=== PATIENT | female | born 1965 | race Caucasian/White ===

== ENCOUNTER 2020-11-12 12:08 | Emergency (ER) | payer MEDICARE, OTHER ==
--- NOTE | 2020-11-12 13:23 | XR ---
EXAMINATION TYPE: XR knee complete RT DATE OF EXAM: 11/12/2020 COMPARISON: NONE HISTORY: Pain TECHNIQUE: Three views are submitted. FINDINGS: Diffuse osteopenia with mild narrowing of the need knee joints. Small amount of fluid in the suprapat ellar bursa. Diffuse osteopenia.. Osseous structures are intact. No acute fracture seen. IMPRESSION: 1. No acute fracture or dislocation. 2. Mild arthropathy with small amount of fluid in the suprapatellar bursa which can be associated wit h internal derangement of the knee correlate with MRI as clinically warranted.
[2020-11-12] MEDS ORDERED: KETOROLAC 15 MG/ML 1 ML VIAL IM STA (13:46)
--- NOTE | 2020-11-12 13:47 | ED ---
Lower Extremity Injury HPI - General Chief Complaint: Extremity Injury, Lower Stated Complaint: Right knee pain Time Seen by Provider: 11/12/20 13:21 Source: patient Mode of arrival: wheelchair Limitations: no limitations - History of Present Illness Initial Comments: 55-year-old female with history of chronic leg pain presenting to emergency Department with a chief complaint of right leg pain. 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 She states the pain is getting worse in the right knee where she has a Abdi cyst. States about 3 weeks ago it was drained her pain management physician which helped improve her symptoms but now it has increased in size again. She reports it is worse when the region is palpated but denies any swelling or erythema or ecchymosis to the region. Denies any limited range of motion. Reports minimal symptoms of the left leg. Denies any paresthesias or weakness to the leg. Denies injury to the leg. States she went to an urgent care and was advised to come to the emergency department for further evaluation. Patient is requesting symptom control until she is able to see her pain management physician in 5 days. - Related Data Allergies Allergy/AdvReac Type Severity Reaction Status Date / Time codeine Allergy Rash/Hives Verified 11/12/20 12:51 Iodinated Contrast Media Allergy Rash/Hives Verified 11/12/20 12:51 morphine Allergy Rash/Hives Verified 11/12/20 12:51 Review of Systems ROS Statement: Those systems with pertinent positive or pertinent negative responses have been documented in the HPI. ROS Other: All systems not noted in ROS Statement are negative. Past Medical History Additional Past Medical History / Comment(s): chronic back pain History of Any Multi-Drug Resistant Organisms: None Reported Past Surgical History: Adenoidectomy, Back Surgery, Section, Cholecystectomy, Orthopedic Surgery, Tonsillectomy Past Psychological History: No Psychological Hx Reported Smoking Status: Never smoker Past Alcohol Use History: None Reported Past Drug Use History: None Reported General Exam Limitations: no limitations General appearance: alert, in no apparent distress Head exam: Present: atraumatic, normocephalic, normal inspection Eye exam: Present: normal appearance, PERRL Pupils: Present: normal accommodation ENT exam: Present: normal exam, normal oropharynx, mucous membranes moist Neck exam: Present: normal inspection, full ROM. Absent: tenderness Respiratory exam: Present: normal lung sounds bilaterally. Absent: respiratory distress, wheezes, rales, rhonchi, stridor, chest wall tenderness, accessory muscle use Cardiovascular Exam: Present: regular rate, normal rhythm, normal heart sounds. Absent: systolic murmur, diastolic murmur Extremities exam: Present: normal inspection, full ROM, tenderness (Tenderness in the popliteal region of the right leg. Palpable Abdi cyst), normal capillary refill, other (Palpable DPPT laterally.). Absent: pedal edema, joint swelling, calf tenderness Back exam: Present: normal inspection, full ROM. Absent: tenderness Neurological exam: Present: alert, oriented X3 Psychiatric exam: Present: normal affect, normal mood Skin exam: Present: warm, dry, intact, normal color Course Vital Signs 11/12/20 12:46 Temperature 97.6 F Pulse Rate 98 Respiratory 20 Rate Blood Pressure 120/77 O2 Sat by Pulse 98 Oximetry Medical Decision Making - Medical Decision Making 55-year-old female with history of chronic pain presenting to emergency Department with a chief complaint of leg pain. Patient is essentially requesting symptomatic control. X-ray shows no significant findings. She has a palpable mass in the popliteal region likely be Abdi cyst. I will give the patient Toradol. She is otherwise neurovascularly intact in bilateral lower extremities. Patient reports she feels comfortable going home after the Toradol and will follow-up in 5 days with her pain management physician. Return parameters were thoroughly discussed with patient was understanding and agreeable. Disposition Clinical Impression: Right knee pain Disposition: HOME SELF-CARE Condition: Stable Instructions (If sedation given, give patient instructions): [facility] [place] (ED) Additional Instructions: Follow-up with employment training specialist. Return to emergency department if symptoms worsen. Is patient prescribed a controlled substance at d/c from ED?: No Referrals: Nonstaff,Physician [Primary Care Provider] - 1-2 days Pascual Cordova DO [Doctor of Osteopathic Medicine] - 1-2 days Time of Disposition: 13:46
[2020-11-12 14:07] VITALS: BP 118/78; PULSE 92; RESP 16; TEMP 97.8
== END 2020-11-12 14:06 | disposition home or self-care (01) ==
LOC: EC 12:08
DX: M71.21 Synovial cyst of popliteal space [Baker], right knee (principal); Z88.5 Allergy status to narcotic agent; Z91.041 Radiographic dye allergy status; Z90.89 Acquired absence of other organs; Z90.49 Acquired absence of other specified parts of digestive tract
CPT/HCPCS: 99283; 96372; 73562; J1885

== ENCOUNTER → 2020-12-27 | Outpatient (CLI) | payer MEDICARE, OTHER ==
[2020-12-27 16:09] LABS: Basophils % (A) 0 %; Eosinophils # (A) 0.1 k/uL (0-0.7); Eosinophils % (A) 2 %; HCT 43.7 % (34.0-46.0); HGB 14.5 gm/dL (11.4-16.0); Lymphocytes # (A) 1.5 k/uL (1.0-4.8); Lymphocytes % (A) 23 %; MCH 29.9 pg (25.0-35.0); MCHC 33.2 g/dL (31.0-37.0); MCV 90.1 fL (80.0-100.0); Monocytes # (A) 0.3 k/uL (0-1.0); Monocytes % (A) 5 %; Neutrophils # (A) 4.5 k/uL (1.3-7.7); Neutrophils % (A) 68 %; Platelet Count 264 k/uL (150-450); RBC 4.85 m/uL (3.80-5.40); RDW 13.6 % (11.5-15.5); WBC 6.5 k/uL (3.8-10.6)
[2020-12-27 16:15] LABS: Potassium 3.6 mmol/L (3.5-5.1)
== END | disposition home or self-care (01) ==
LOC: LABPAT 14:27
PROVIDERS: ATTEND Orthopaedic Surgery
DX: Z01.812 Encounter for preprocedural laboratory examination (principal); M23.91 Unspecified internal derangement of right knee
CPT/HCPCS: 80051; 85025; 93005

== ENCOUNTER 2021-01-06 12:19 | Day surgery (SDC) | payer MEDICARE, OTHER ==
[2020-12-31 15:44] VITALS: BMI 30.7
--- NOTE | 2021-01-05 14:13 | HP ---
HISTORY AND PHYSICAL REASON FOR ADMISSION: Surgery 01/06/2021 HISTORY OF PRESENT ILLNESS: Erica Hood is a 55-year-old patient seen with progressive right knee pain. We discussed options for treatment. She elected to proceed with right knee arthroscopy. Consent was obtained. PAST MEDICAL HISTORY: Hypothyroidism, hypertension. PAST SURGICAL HISTORY: Cholecystectomy, knee arthroscopy, lumbar spine surgery. MEDICATIONS: Gabapentin, levothyroxine, OxyContin. ALLERGIES: CODEINE, MORPHINE. SOCIAL HISTORY: She denies tobacco use. PHYSICAL EVALUATION OF THE RIGHT KNEE: Range of motion is -5/6-90. She has a rather large Abdi cyst and a moderate intra- articular effusion. She is tender along the medial joint line. Tender lateral joint line. Positive medial Alex's. Ligaments are stable. Hip rotation is without pain. Distal neurovascular exam is intact. RADIOGRAPHS: Right knee radiographs revealed mild osteoarthritis. IMPRESSION: 1. Internal derangement of right knee with medial meniscal tear. 2. Hypertension. 3. Hypothyroidism. 4. Chronic low back pain. 5. History of right footdrop. PLAN: Right knee arthroscopy with partial meniscectomy and debridement. Surgery is 01/06/2021. MMODL / IJN: [id number] /
[~2021-01-06 12:19] MED LIST: DEXAMETHASONE SOD PHOSPHATE 4 MG/ML 1 ML VIAL IV ONE; MIDAZOLAM 2 MG/2 ML VIAL IV PRN; ONDANSETRON 4 MG/2 ML VIAL IVP ONE; SCOPOLAMINE 1.5MG/72HR PATCH TRANSDERM ONE
[2021-01-06] MEDS ORDERED: LIDOCAINE 1% (10MG/ML) FOR IV START INTRADERMA ONE (12:56)
[2021-01-06] MEDS: LACTATED RINGERS 1,000 ML IV SCH ×2 (12:56→15:39)
[2021-01-06] MEDS ORDERED: MEPERIDINE 50 MG/ML SYRINGE IVP ONE (13:12)
[2021-01-06] MEDS ORDERED: LIDOCAINE 1% INJ 10MG/ML (20 ML MDV) ONE (13:20)
[2021-01-06] MEDS ORDERED: SUCCINYLCHOLINE CHLORIDE 100 MG/5 ML SYR IV ONE (13:20)
[2021-01-06] MEDS ORDERED: HYDROmorphone (PF) 1 MG/ML ONE (13:20)
[2021-01-06] MEDS ORDERED: KETOROLAC 15 MG/ML 1 ML VIAL ONE (13:20)
[2021-01-06] MEDS ORDERED: MIDAZOLAM 2 MG/2 ML VIAL ONE (13:20)
[2021-01-06] MEDS ORDERED: PROPOFOL 10 MG/ML 20 ML VIAL IV ONE (13:20)
[2021-01-06] MEDS ORDERED: fentaNYL (PF) 50 MCG/ML 2 ML AMP ONE (13:20)
[2021-01-06] MEDS ORDERED: BUPIVACAIN-EPI 0.25%-1:200,000 30 ML VIAL INTRAARTIC ONE ×2 (13:51→14:05)
--- NOTE | 2021-01-06 14:22 | P.OP ---
Date of Procedure: 01/06/21 Preoperative Diagnosis: Internal derangement right knee Postoperative Diagnosis: 1. Tear medial meniscus right knee 2. Grade 2 chondromalacia medial femoral condyle right knee 3. Reactive synovitis medial, lateral and suprapatellar compartments right knee Procedure(s) Performed: 1. Arthroscopic partial medial meniscectomy right knee 2. Arthroscopic chondroplasty medial femoral condyle right knee 3. Arthroscopic partial synovectomy medial, lateral and suprapatellar compartments right knee Anesthesia: ABILIOA, local Surgeon: Vu Hitchcock Estimated Blood Loss (ml): 11 Pathology: none sent Condition: stable Disposition: PACU Indications for Procedure: 55-year-old patient seen with progressive right knee pain. After having treatment options discussed, she elected to proceed with arthroscopy. Operative Findings: See description of procedure Description of Procedure: Patient was taken to the operative suite. Patient underwent a general anesthetic by the department of anesthesia. Patient was given preoperative antibiotics. The right lower extremity was placed in a well-padded arthroscopic leg samano. The right leg was prepped and draped in the normal sterile orthopedic fashion. A lateral parapatellar and suprapatellar incision was made. Trochars were inserted. Arthroscopy was initiated. Suprapatellar pouch revealed diffuse thick reactive synovitis. The patellofemoral joint appeared to articulate congruently. There was grade 1/2 chondromalacia of the patella with no osteochondral tears present. The scope was guided into the medial gutter. No loose bodies or plica were identified. The scope was then guided into the medial compartment. A medial parapatellar incision was made. Trocar inserted followed by probe. There was a tear involving the posterior horn of the medial meniscus. There were grade 2 chondromalacia changes of the medial femoral condyle with some osteochondral flap tears present. There was thick reactive synovitis anteriorly. I performed a partial medial meniscectomy getting down to stable meniscal tissue. I performed a chondroplasty of the medial femoral condyle getting down to stable osteochondral tissue. I performed a partial synovectomy decompressing the thick reactive synovitis anteriorly. The shaver was removed. The residual meniscus was stable. The residual osteochondral surface was stable. There was good decompression of the synovitis. Scope and probe were then guided into the intercondylar notch. Cruciates were identified, probed and found to be stable. The scope and probe were then guided into lateral compartment. The lateral meniscus was probed and it was found to be stable. There was no chondromalacia present. There was some thick reactive synovitis anteriorly. I introduced a motorized shaver and performed a partial synovectomy. The shaver was removed. There was good decompression of the synovitis. The scope was in guided back into the suprapatellar compartment. I introduced a motorized shaver into the super compartment. I debrided out some piecemeal fragments of meniscus I encountered. I performed a partial synovectomy. The shaver was removed. There was good decompression of the synovitis. I took one more look on the entire knee, no residual debris. Instruments were now removed from the joint. The joint was infiltrated with .25% Marcaine. Steri-Strips were applied to the portal sites. Sterile dr essings were applied. The patient was placed into a JESUS hose. No tourniquet was utilized. The patient was awakened, transferred to a bed and taken to recovery stable satisfactory condition.
[2021-01-06 14:34] VITALS: TEMP 97
[2021-01-06 14:36] VITALS: RESP 16
[2021-01-06] MEDS: fentaNYL (PF) 50 MCG/ML 2 ML AMP IV PRN ×3 (14:42→15:00)
[2021-01-06] MEDS ORDERED: HYDROmorphone 0.5 MG/0.5 ML SYRINGE IVP ONE ×2 (15:14→15:28)
[2021-01-06] MEDS ORDERED: ONDANSETRON 4 MG/2 ML VIAL ONE (15:40)
[2021-01-06] MEDS ORDERED: oxyCODONE-APAP 5-325MG 1 EACH TAB ONE (15:55)
[2021-01-06] MEDS ORDERED: oxyCODONE-APAP 5-325MG 1 EACH TAB PO ONE (15:59)
[2021-01-06 16:00] VITALS: BP 121/80; PULSE 82
== END 2021-01-06 16:26 | disposition home or self-care (01) ==
LOC: OR 12:19
PROVIDERS: ATTEND Orthopaedic Surgery
DX: S83.241A Other tear of medial meniscus, current injury, right knee, initial encounter (principal); I10 Essential (primary) hypertension; E03.9 Hypothyroidism, unspecified; M54.5 Low back pain; G89.29 Other chronic pain
CPT/HCPCS: 29881; 29876; J2250; J1100; J2175; J0690; J2405; J2001; J3010; J1170 ×2; J1885; J0330; J2704

== ENCOUNTER → 2021-11-23 | Outpatient (CLI) | payer MEDICARE, OTHER ==
[2021-11-23 18:13] LABS: Basophils # (A) 0.02 X 10*3/uL (0.00-0.10); Basophils % (A) 0.3 %; Eosinophils # (A) 0.06 X 10*3/uL (0.04-0.35); Eosinophils % (A) 0.8 %; HCT 45.5 % (37.2-46.3); HGB 14.2 g/dL (12.0-15.0); Immature Grans, Automated 0.5 %; Lymphocytes # (A) 0.76 X 10*3/uL (0.90-5.00); Lymphocytes % (A) 9.5 %; MCH 28.7 pg (27.0-32.0); MCHC 31.2 g/dL (32.0-37.0); MCV 92.1 fL (80.0-97.0); Monocytes # (A) 0.28 X 10*3/uL (0.20-1.00); Monocytes % (A) 3.5 %; NRBC Per 100 WBC 0 /100 WBCS (0.0-0.0); Neutrophils # (A) 6.82 X 10*3/uL (1.80-7.70); Neutrophils % (A) 85.4 %; Platelet Count 264 X 10*3/uL (140-440); RBC 4.94 X 10*6/uL (4.10-5.20); RDW 13.2 % (11.5-14.5); WBC 7.98 X 10*3/uL (4.50-10.00)
[2021-11-23 18:54] LABS: Anion Gap 12.5 mmol/L (10.00-18.00); Potassium 3.6 mmol/L (3.5-5.5)
== END | disposition home or self-care (01) ==
LOC: LABPAT 12:11
PROVIDERS: ATTEND Orthopaedic Surgery
DX: Z01.818 Encounter for other preprocedural examination (principal); I49.1 Atrial premature depolarization; M75.41 Impingement syndrome of right shoulder
CPT/HCPCS: 80051; 85025; 93005

== ENCOUNTER 2021-12-01 12:05 | Day surgery (SDC) | payer MEDICARE, OTHER ==
[2021-11-28 15:47] VITALS: BMI 34.7
--- NOTE | 2021-12-01 03:34 | HP ---
HISTORY AND PHYSICAL DATE OF SURGERY: 12/01/2021. HISTORY OF PRESENT ILLNESS: Erica Hood is a 56-year-old patient seen with progressive right shoulder pain. Options for treatment were discussed with her, showed post right shoulder arthroscopy. Consent was obtained. PAST MEDICAL HISTORY: Hypothyroidism, hypertension. PAST SURGICAL HISTORY: Cholecystectomy, lumbar spine surgery, knee arthroscopy. MEDICATIONS: Levothyroxine, OxyContin, Flexeril. ALLERGIES: Morphine, codeine. SOCIAL HISTORY: She denies current tobacco use. PHYSICAL EVALUATION OF RIGHT SHOULDER: Flexion 70 degrees, abduction is 50 degrees. External rotation 20 degrees with pain, weakness, tenderness along the anterior lateral acromion, acromioclavicular and rotator cuff insertion site. Impingement positive at 90 degrees. Drop-arm sign is positive. Distal neurovascular exam is intact. RADIOGRAPHS: Right shoulder type 2 acromion, severe acromioclavicular joint osteoarthritis and cystic changes of the tuberosity. MRI right shoulder impingement, acromioclavicular joint osteoarthritis, rotator cuff tenderness and capsulitis. IMPRESSION: 1. Right shoulder impingement with rotator cuff tendinitis and possible tear. 2. Right shoulder acromioclavicular osteoarthritis severe shoulder adhesive capsulitis. 3. Hypertension. 4. Hyperlipidemia. PLAN: Right shoulder arthroscopy with subacromial decompression, possible arthroscopic rotator cuff repair, Ronna procedure and debridement. MMODL / IJN: [id number] /
[~2021-12-01 12:05] MED LIST changes: +HYDROmorphone 0.5 MG/0.5 ML SYRINGE IVP PRN; +LACTATED RINGERS 1,000 ML IV SCH; +LIDOCAINE 1% (10MG/ML) FOR IV START INTRADERMA PRN; +METOCLOPRAMIDE 5 MG/ML 2 ML VIAL IVP PRN; -MIDAZOLAM 2 MG/2 ML VIAL IV PRN; -SCOPOLAMINE 1.5MG/72HR PATCH TRANSDERM ONE
[2021-12-01] MEDS ORDERED: MIDAZOLAM 2 MG/2 ML VIAL IVP ONE ×3 (13:24→19:11)
[2021-12-01] MEDS ORDERED: LIDOCAINE 4% LTA KIT (4 ML) TOPICAL ONE (14:21)
[2021-12-01] MEDS ORDERED: NEOSTIGMINE 1 MG/ML 10 ML VIAL ONE (14:21)
[2021-12-01] MEDS ORDERED: DEXAMETHASONE SOD PHOSPHATE 4 MG/ML 1 ML VIAL ONE (14:21)
[2021-12-01] MEDS ORDERED: PROPOFOL 10 MG/ML 20 ML VIAL IV ONE (14:21)
[2021-12-01] MEDS ORDERED: SUCCINYLCHOLINE CHLORIDE 200 MG/10 ML VIAL IV ONE (14:21)
[2021-12-01] MEDS ORDERED: HYDROmorphone (PF) 1 MG/ML ONE (14:21)
[2021-12-01] MEDS ORDERED: ROPIVACAINE 5 MG/ML 30 ML VIAL ONE (14:21)
[2021-12-01] MEDS ORDERED: fentaNYL (PF) 50 MCG/ML 2 ML AMP ONE (14:21)
[2021-12-01] MEDS ORDERED: ROCURONIUM 10 MG/ML (5 ML VIAL) IV ONE (14:21)
[2021-12-01] MEDS ORDERED: LIDOCAINE 2% INJ 20 MG/ML (2 ML VIAL) ONE (14:21)
[2021-12-01] MEDS ORDERED: GLYCOPYRROLATE 0.2 MG/ML 2 ML VIAL ONE (14:21)
[2021-12-01] MEDS ORDERED: MIDAZOLAM 2 MG/2 ML VIAL ONE (14:21)
--- NOTE | 2021-12-01 15:47 | P.OP ---
Date of Procedure: 12/01/21 Preoperative Diagnosis: Right shoulder impingement Postoperative Diagnosis: 1. Right shoulder rotator cuff tear 2. Right shoulder impingement 3. Right shoulder acromioclavicular joint osteoarthritis 4. Right shoulder partial long head biceps tendon tear Procedure(s) Performed: 1. Right shoulder arthroscopic rotator cuff repair 2. Right shoulder arthroscopic subacromial decompression 3. Right shoulder arthroscopic Ronna procedure 4. Right shoulder arthroscopic biceps tenotomy Implants: 15.5 Arthrex swivel lock anchor Anesthesia: GETA, regional (Interscalene block) Surgeon: Vu Hitchcock Head Housekeeper #1: Bruce Hawthorne Estimated Blood Loss (ml): 10 Pathology: none sent Condition: stable Disposition: PACU Indications for Procedure: 56-year-old patient seen with progressive right shoulder pain. After treatment options were discussed, she elected to proceed with arthroscopy. Operative Findings: see description of procedure Description of Procedure: Patient underwent an interscalene block by department of anesthesia. The patient was then taken to the operative suite. The patient underwent a general anesthetic by the department of anesthesia. The patient was placed into a lateral position and secured. There was appropriate padding of the bony prominence. Right shoulder was then prepped and draped in normal sterile orthopedic fashion. We placed the extremity in 10 pounds of longitudinal traction. A posterior incision was now made for a posterior working portal site. The trocar and cannula were inserted into the glenohumeral joint. Arthroscopy was initiated. Spinal needle was now inserted anteriorly, to ascertain the anterior working portal site. An incision was now made in that area, a trocar was inserted followed by a probe. There was partial tearing and hyperemia long head biceps tendon. There are multiple loose bodies within the glenohumeral joint. There were grade 2/3 chondromalacia changes about the glenohumeral amarilis nt. The labrum appeared diminutive with no tears. I introduced a motorized shaver and debrided out those multiple loose bodies. I now performed arthroscopic biceps tenotomy. The labrum was again probed and found to be stable. Instruments were now removed from glenohumeral joint. Utilizing the posterior working portal site, the trocar and cannula were inserted into the subacromial space. Arthroscopy initiated. I made an incision 2 fingerbreadths lateral to the acromion. I introduced my trocar followed by my ArthroCare ablator. I now began ablating thick subacromial bursal tissue, which exposed the undersurface of the anterior acromion. There was diminished subacromial space. There was a very prominent anterior acromion. A motorized bur was introduced and a subacromial decompression was performed. I also excised some osteophytes off the inferior aspect of the distal clavicle. The AC joint was visualized and noted to be fairly arthritic. The motorized bur was introduced in the anterior portal site and a Ronna procedure was performed without difficulty, decompressing the AC joint nicely. I turned my attention to the rotator cuff. There was a 1.5 cm tear along the distal supraspinatus tendon. It was freely mobile over the footprint. I abraded the footprint with a motorized bur. I passed 2 everted mattress sutures through good bites of rotator cuff tendon. I punched a pole and the footprint area for insertion of an anchor. I passed all 4 suture limbs through the eyelet of a 5.5 Arthrex swivel lock anchor. I placed the eyelet into the pre-punched hole. I held it in position while Steve GRANT tensioned all 4 limbs of suture and deployed the anchor with good fixation noted. All residual suture limbs were now clipped. We had good compression of the tendon along the entire footprint. Instruments now removed from the portal sites. All portal sites were approximated with nylon suture. Sterile dressings were applied followed by a shoulder sling. Bruce GRANT assisted in this complex case. The patient was awakened, transferred to a bed, and taken to recovery in stable condition.
[2021-12-01 15:58] VITALS: TEMP 97.6
[2021-12-01] MEDS ORDERED: ONDANSETRON 4 MG/2 ML VIAL IVP ONE (16:24)
[2021-12-01] MEDS ORDERED: LACTATED RINGERS 1,000 ML IV ONE ×2 (17:30→18:30)
[2021-12-01] MEDS ORDERED: LABETALOL 5 MG/ML VIAL MDV IVP ONE (19:20)
[2021-12-01 19:37] VITALS: BP 119/72; PULSE 98; RESP 16
--- NOTE | 2021-12-01 19:40 | P.ANPRN ---
Procedure Note - Anesthesia - Nerve Block Performed Right Interscalene Single Time Out Performed: Yes Date of Procedure: 12/01/21 Procedure Start Time: 13:23 Procedure Stop Time: 13:36 Location of Patient: PreOp Indication: Acute Post-Operative Pain, Requested by Surgeon Sedation Type: Sedate with meaningful contact maintained Preparation: Sterile Prep Position: Supine Needle Types: Pajunk Needle Gauge: 21 Ultrasound used to visualize needle placement: Yes Ultrasound used to observe medication spread: Yes Blood Aspirated: No Pain Paresthesia on Injection Noted: No Resistance on Injection: Normal Image Stored and Saved: Yes Events: Uneventful and Well Tolerated (ropi .5% 20cc plus dexamethasone 4mg)
== END 2021-12-01 20:05 | disposition home or self-care (01) ==
LOC: OR 12:05
PROVIDERS: ATTEND Orthopaedic Surgery
DX: M75.101 Unspecified rotator cuff tear or rupture of right shoulder, not specified as traumatic (principal); M25.811 Other specified joint disorders, right shoulder; M19.011 Primary osteoarthritis, right shoulder; S46.111A Strain of muscle, fascia and tendon of long head of biceps, right arm, initial encounter; X58.XXXA Exposure to other specified factors, initial encounter; E03.9 Hypothyroidism, unspecified; I10 Essential (primary) hypertension; Z90.49 Acquired absence of other specified parts of digestive tract; Z79.890 Hormone replacement therapy; Z79.891 Long term (current) use of opiate analgesic; Z79.899 Other long term (current) drug therapy; Z98.890 Other specified postprocedural states; Z88.5 Allergy status to narcotic agent; Z91.040 Latex allergy status
CPT/HCPCS: 64415; 76942; 29826; 29827; 29824; C1713; J2250; J0330; J1100; J2710; J0690; J2405; J3010; J1170 ×2; J2795; J2704; J2001

== ENCOUNTER 2022-02-06 21:02 | Inpatient (IN) | payer MEDICARE, OTHER ==
[2022-02-06] MEDS ORDERED: fentaNYL (PF) 50 MCG/ML 2 ML AMP IVP STA (21:29)
[2022-02-06] MEDS ORDERED: ONDANSETRON 4 MG/2 ML VIAL IVP STA (21:29)
[2022-02-06] MEDS ORDERED: SODIUM CHLORIDE 0.9% 1,000 ML IV ONE (21:29)
--- NOTE | 2022-02-06 21:58 | XR ---
EXAMINATION TYPE: XR chest 2V DATE OF EXAM: 02/06/2022 COMPARISON: NONE HISTORY: Chest pain TECHNIQUE: FINDINGS: Heart is normal. Lungs are clear. There is normal. There is neural stimulator in the mid thoracic spine. Bony thorax is intact. There a re chest leads. IMPRESSION: No active cardiopulmonary disease. Normal heart.
[2022-02-06 22:03] LABS: Basophils # (A) 0.1 k/uL (0-0.2); Basophils % (A) 1 %; Eosinophils # (A) 0.2 k/uL (0-0.7); Eosinophils % (A) 2 %; HCT 45.9 % (34.0-46.0); Hypochromasia Slight; Lymphocytes # (A) 3.2 k/uL (1.0-4.8); Lymphocytes % (A) 30 %; MCHC 32.7 g/dL (31.0-37.0); MCV 88.6 fL (80.0-100.0); Mean Platelet Volume 8.4; Monocytes # (A) 0.6 k/uL (0-1.0); Monocytes % (A) 6 %; Neutrophils # (A) 6.2 k/uL (1.3-7.7); Neutrophils % (A) 60 %; Platelet Count 315 k/uL (150-450); RBC 5.17 m/uL (3.80-5.40); RDW 12.9 % (11.5-15.5); WBC 10.4 k/uL (3.8-10.6)
[2022-02-06 22:16] LABS: Potassium 3.6 mmol/L (3.5-5.1)
[2022-02-06 22:17] LABS: Albumin 4.3 g/dL (3.5-5.0); Calcium 9.9 mg/dL (8.4-10.2); Magnesium 2.1 mg/dL (1.6-2.3); Total Bilirubin 0.3 mg/dL (0.2-1.3); Total Protein 6.8 g/dL (6.3-8.2)
[2022-02-06] MEDS ORDERED: methylPREDNISolone SOD SUCCIN 125 MG in SODIUM CHLORIDE 0.9% 100 ML IVPB STA (22:19)
[2022-02-06] MEDS ORDERED: diphenhydrAMINE 50 MG/ML 1 ML VIAL IVP STA ×2 (22:19→23:33)
[2022-02-06] MEDS ORDERED: methylPREDNISolone SOD SUCCI 125 MG/2 ML VIAL IVP ONE (22:30)
[2022-02-06] MEDS: FAMOTIDINE 20 MG/2 ML VIAL IV STA ×3 (23:38→23:41)
--- NOTE | 2022-02-07 00:08 | ED ---
General Adult HPI - General Chief complaint: Arrhythmia/Palpitations Stated complaint: Chest pain Time Seen by Provider: 02/06/22 21:13 Source: patient Mode of arrival: wheelchair Limitations: no limitations - History of Present Illness Initial comments: This is a 56-year-old female with a reported past medical history including thyroid disorder presents emergency department for increased heart rate. The patient stated that over the last 2 hours she has experienced increased heart rate as well as weakness, lightheadedness and clamminess. The patient's son is an EMT and reported that the patient started having symptoms before he left the gym around 7 PM however she did not tell him until they returned around 8 PM. The patient reported this been ongoing for the last 3 hours and has not results. The patient stated that she has had intermittent episodes of this at night but did resolve with an hour or 2 and has not seen a doctor for this. On arrival, the patient's heart rate was 222. The patient also reported some associated chest pain and shortness of breath. The patient denied any drug ingestion or any other medications that she use today. The patient denied any nausea or vomiting as well as any fevers and chills but stated that she did have continued chest pain and discomfort secondary to this tachycardia. - Related Data Home Medications Medication Instructions Recorded Confirmed Cyclobenzaprine [Flexeril] 10 mg PO HS PRN 12/31/20 12/01/21 Levothyroxine Sodium [Synthroid] 125 mcg PO DAILY 12/31/20 12/01/21 Liothyronine Sodium [Cytomel] 10 mcg PO DAILY 12/31/20 12/01/21 Rimegepant Sulfate [Nurtec Odt] 75 mg PO DIRECTED PRN 12/31/20 12/01/21 oxyCODONE-APAP 10-325MG [Percocet 1 tab PO Q12H PRN 12/31/20 12/01/21 10-325 mg] Atogepant [Qulipta] 60 mg PO DAILY 11/30/21 12/01/21 DULoxetine HCL [Cymbalta] 60 mg PO HS 11/30/21 12/01/21 Ondansetron [Zuplenz] 8 mg PO BID PRN 11/30/21 12/01/21 Topiramate [Topamax] 100 mg PO BID 11/30/21 12/01/21 Ubrogepant [Ubrelvy] 100 mg PO DAILY PRN 11/30/21 12/01/21 traZODone HCL [Desyrel] 50 mg PO HS 11/30/21 12/01/21 Allergies Allergy/AdvReac Type Severity Reaction Status Date / Time codeine Allergy Rash/Hives Verified 12/01/21 12:32 Iodinated Contrast Media Allergy Rash/Hives Verified 12/01/21 12:32 latex Allergy itchy, Verified 12/01/21 12:32 sores on hands w/contact morphine Allergy Rash/Hives, Verified 12/01/21 12:32 ITCHING Review of Systems ROS Statement: Those systems with pertinent positive or pertinent negative responses have been documented in the HPI. ROS Other: All systems not noted in ROS Statement are negative. Past Medical History Additional Past Medical History / Comment(s): chronic back pain History of Any Multi-Drug Resistant Organisms: None Reported Past Surgical History: Adenoidectomy, Back Surgery, Section, Cholecystectomy, Orthopedic Surgery, Tonsillectomy Past Psychological History: No Psychological Hx Reported Smoking Status: Never smoker Past Alcohol Use History: None Reported General Exam Limitations: no limitations General appearance: alert, anxious, in distress Head exam: Present: atraumatic, normocephalic Eye exam: Present: normal appearance, PERRL Pupils: Present: normal accommodation ENT exam: Present: normal exam, normal oropharynx, mucous membranes moist Neck exam: Present: normal inspection Respiratory exam: Present: normal lung sounds bilaterally Cardiovascular Exam: Present: normal rhythm, tachycardia, normal heart sounds GI/Abdominal exam: Present: soft, normal bowel sounds Extremities exam: Present: normal inspection, full ROM Back exam: Present: normal inspection, full ROM Neurological exam: Present: alert, oriented X3, CN II-XII intact Psychiatric exam: Present: normal affect, normal mood, anxious Skin exam: Present: warm, dry Course Vital Signs 02/06/22 02/06/22 02/06/22 21:07 21:24 22:09 Temperature 97 F L Pulse Rate 225 H 116 H 111 H Pulse Rate [ 116 H Actuarial Manager ] Respiratory 20 16 16 Rate Blood Pressure 113/78 119/73 118/67 O2 Sat by Pulse 99 99 97 Oximetry 02/06/22 02/07/22 23:00 00:00 Temperature Pulse Rate 96 104 H Pulse Rate [ Actuarial Manager ] Respiratory 18 20 Rate Blood Pressure 125/80 113/78 O2 Sat by Pulse 96 94 L Oximetry EKG Findings - EKG Comments: EKG Findings:: An EKG was obtained on arrival and was read by myself. EKG showed a rate of 222, QRS duration of 214 and QTC of 311. This EKG was significant for significant tachycardia likely SVT. No other discernible idolized be noted secondary to the speed at the EKG. Modified Valsalva maneuvers were performed. A second EKG was obtained and was read by myself. This EKG showed a rate of 125, AK interval 134, QRS duration of 90 and QTC of 449. This EKG showed sinus tachycardia without any signs of ST segment elevations or depressions noted. Medical Decision Making - Medical Decision Making The patient was seen and evaluated in the emergency department. Initially on arrival, the patient was in the resuscitation bay secondary to the patient's elevated heart rate of 235. The patient's blood pressure was however stable. Immediately on arrival, an EKG was obtained that showed likely SVT. Due to these findings, the patient underwent the modified Valsalva technique and her heart rate did decrease immediately to 125 and continued to decrease. The patient stated that she had continued left-sided chest pain and discomfort and a full workup was obtained. Initially, laboratory workup was obtained as was a chest x-ray. A chest x-ray was obtained and was interpreted by myself and showed no active disease. Laboratory workup was obtained that showed an elevated d-dimer at 0.91 and therefore a CTA of the chest was ordered to rule out a PE. The patient did receive 1 L normal saline fluid. The patient had reported iodine ALLERGY and was given pretreatment including site Medrol and Benadryl. On reevaluation, the patient noted to be anxious and itching stating that she thinks that she may be ALLERGIC to all steroids but did not state that this was in her chart nor did she tell anybody about this. Due to this, the patient was given a second dose of Benadryl and Pepcid and continued to be closely mon itored. The patient's heart rate did remain under 100. The patient had significant lightheadedness and dizziness upon sitting up or standing and did have an episode of syncope while going to the bathroom upon standing. The patient did not her head and did not have any other trauma. The patient's syncope was witnessed by the nurse. Due to the patient's persistent and paroxysmal SVT in the setting of the patient's continued chest pain and postural and orthostatic dizziness, the patient will require inpatient admission for further evaluation and management. The patient doesn't have a primary care physician and will be admitted under the [facility] physician group. Dr. Bowman was contacted and accepted the patient for admission. Cardiology was placed on consult. A CTA of the chest was still pending at this time and both the admitting physician and the emergency room physician were told to monitor the results. If there is a positive result, a will be acted upon by either the emergency room physician or by Dr. Bowman. The patient was told of this plan and was agreeable. The patient was admitted in stable condition. - Lab Data Result diagrams: 02/06/22 21:43 02/06/22 21:43 Lab Results 02/06/22 02/06/22 02/06/22 Range/Units 21:43 21:43 21:43 WBC 10.4 (3.8-10.6) k/uL RBC 5.17 (3.80-5.40) m/uL Hgb 15.0 (11.4-16.0) gm/dL Hct 45.9 (34.0-46.0) % MCV 88.6 (80.0-100.0) fL MCH 29.0 (25.0-35.0) pg MCHC 32.7 (31.0-37.0) g/dL RDW 12.9 (11.5-15.5) % Plt Count 315 (150-450) k/uL MPV 8.4 Neutrophils % 60 % Lymphocytes % 30 % Monocytes % 6 % Eosinophils % 2 % Basophils % 1 % Neutrophils # 6.2 (1.3-7.7) k/uL Lymphocytes # 3.2 (1.0-4.8) k/uL Monocytes # 0.6 (0-1.0) k/uL Eosinophils # 0.2 (0-0.7) k/uL Basophils # 0.1 (0-0.2) k/uL Hypochromasia Slight D-Dimer (<0.60) mg/L FEU Sodium (137-145) mmol/L Potassium (3.5-5.1) mmol/L Chloride (98-107) mmol/L Carbon Dioxide (22-30) mmol/L Anion Gap mmol/L BUN (7-17) mg/dL Creatinine (0.52-1.04) mg/dL Est GFR (CKD-EPI)AfAm (>60 ml/min/1.73 sqM) Est GFR (CKD-EPI)NonAf (>60 ml/min/1.73 sqM) Glucose (74-99) mg/dL Calcium (8.4-10.2) mg/dL Magnesium (1.6-2.3) mg/dL Total Bilirubin (0.2-1.3) mg/dL AST (14-36) U/L ALT (4-34) U/L Alkaline Phosphatase (38-126) U/L Troponin I 0.017 (0.000-0.034) ng/mL NT-Pro-B Natriuret Pep 696 pg/mL Total Protein (6.3-8.2) g/dL Albumin (3.5-5.0) g/dL 02/06/22 02/06/22 Range/Units 21:43 21:43 WBC (3.8-10.6) k/uL RBC (3.80-5.40) m/uL Hgb (11.4-16.0) gm/dL Hct (34.0-46.0) % MCV (80.0-100.0) fL MCH (25.0-35.0) pg MCHC (31.0-37.0) g/dL RDW (11.5-15.5) % Plt Count (150-450) k/uL MPV Neutrophils % % Lymphocytes % % Monocytes % % Eosinophils % % Basophils % % Neutrophils # (1.3-7.7) k/uL Lymphocytes # (1.0-4.8) k/uL Monocytes # (0-1.0) k/uL Eosinophils # (0-0.7) k/uL Basophils # (0-0.2) k/uL Hypochromasia D-Dimer 0.91 H (<0.60) mg/L FEU Sodium 140 (137-145) mmol/L Potassium 3.6 (3.5-5.1) mmol/L Chloride 107 (98-107) mmol/L Carbon Dioxide 23 (22-30) mmol/L Anion Gap 10 mmol/L BUN 18 H (7-17) mg/dL Creatinine 0.88 (0.52-1.04) mg/dL Est GFR (CKD-EPI)AfAm 86 (>60 ml/min/1.73 sqM) Est GFR (CKD-EPI)NonAf 74 (>60 ml/min/1.73 sqM) Glucose 117 H (74-99) mg/dL Calcium 9.9 (8.4-10.2) mg/dL Magnesium 2.1 (1.6-2.3) mg/dL Total Bilirubin 0.3 (0.2-1.3) mg/dL AST 27 (14-36) U/L ALT 26 (4-34) U/L Alkaline Phosphatase 88 (38-126) U/L Troponin I (0.000-0.034) ng/mL NT-Pro-B Natriuret Pep pg/mL Total Protein 6.8 (6.3-8.2) g/dL Albumin 4.3 (3.5-5.0) g/dL Critical Care Time Critical Care Time: Yes Total Critical Care Time: 46 Disposition Clinical Impression: Supraventricular tachycardia, Orthostatic dizziness, Chest pain Disposition: ADMITTED IP TO THIS [facility] Condition: Stable Is patient prescribed a controlled substance at d/c from ED?: No Referrals: None,Stated [Primary Care Provider] - 1-2 days Time of Disposition: 00:45 Decision to Admit Reason: Admit from EC Decision Date: 02/07/22 Decision Time: 00:45
[2022-02-07] MEDS ORDERED: NALOXONE 0.4 MG/ML 1 ML VIAL IV PRN (00:44)
[2022-02-07] MEDS ORDERED: LORazepam 2 MG/ML INJ IV STA ×3 (00:57→15:05)
--- NOTE | 2022-02-07 02:04 | CT ---
EXAMINATION TYPE: CT angio chest DATE OF EXAM: 02/07/2022 COMPARISON: None HISTORY: syncope and chest pain CT DLP: 656.2 mGycm Automated exposure control for dose reduction was used. CONTRAST: Performed with IV Contrast, patient injected with 84 ML mL of Isovue 370. There are Three-D postprocessed images. There is mild subsegmental atelectasis at the lung bases. Heart size is fairly normal. No pericardial effusion. There is no pleural effusion. There are no hilar masses. There is no mediastinal adenopathy. The thoracic aorta is intact. No aneur ysm or dissection. There is no evidence of filling defect in the pulmonary arteries. The thoracic spine is intact. Alegria um is intact. No compression fractures. Upper abdominal soft tissues are intact. IMPRESSION: No evidence of pulmonary embolism. No suspicious pulmonary mass. Minimal fibrotic changes at the lung bases.
[2022-02-07] MEDS: SODIUM CHLORIDE 0.9% 1,000 ML IV SCH (02:16)
[2022-02-07] MEDS ORDERED: METOPROLOL TARTRATE 25 MG TAB PO STA (03:34)
[2022-02-07] MEDS ORDERED: ASPIRIN 81 MG PO STA (03:34)
[2022-02-07] MEDS ORDERED: ATORVASTATIN 80 MG TAB PO STA (03:34)
--- NOTE | 2022-02-07 03:38 | P.HPIM ---
History of Present Illness H&P Date: 02/07/22 The patient is a 56-year-old female with a PMH of hypothyroidism who presents to the emergency room with complaints of dizziness and palpitations. The patient reports that ever since her shoulder surgery at the end of November, she has been experiencing intermittent palpitations accompanied by dizziness. She reports that earlier today however, her symptoms got worse while she was at home cooking and felt severely lightheaded. She reports that the episode started around 7 PM with palpitations accompanied by an aching chest discomfort, shortness of breath, and near-syncope. The patient subsequently fell while attempting to use the restroom while in the waiting area in the emergency room. The patient was noted to be in suspected SVT with EKG showing 222 bpm. She converted to sinus rhythm with Valsalva with subsequent EKG showing sinus tachycardia at 1 25 bpm with poor R-wave progression. Chest CTA was unremarkable. Laboratory evaluation revealed a troponin of 0.017 with proBNP 6 96. She was also noted to be severely orthostatic. Of note, the patient who has a known iodine contrast ALLERGY was premedicated with Benadryl and Solu- Medrol and subsequently developed diffuse itching and a presumed ALLERGIC reaction to the steroids which the patient had previously stated is a known ALLERGY. Review of systems: Pertinent positives and negatives as discussed in HPI, a complete review of systems was performed and all other systems are negative. Physical examination: General: non toxic, no distress, appears at stated age, obese Derm: no unusual rashes/lesions, warm Head: atraumatic, normocephalic, symmetric Eyes: EOMI, no lid lag, anicteric sclera, pupils equal round reactive to light ENT: Nose and ears atraumatic Neck: No cervical lymphadenopathy, trachea midline, supple Mouth: no lip lesion, mucus membranes moist Cardiovascular: S1S2 reg, no murmur, positive dorsalis pedis pulse bilateral, no edema Lungs: CTA bilateral, no rhonchi, no rales, no accessory muscle use Abdominal: soft, nontender to palpation, no guarding Ext: muscle strength 5 out of 5 in all 4 extremities grossly, no gross muscle atrophy, no contractures, Neuro: CN II-XI grossly intact, no gross focal neuro deficits Psych: Alert, oriented, appropriate affect Assessment/plan Chest pain, SVT, light headedness -Cardiology consulted -Cardiac monitoring -Trend troponin -Continue with aspirin, statin, beta pricila -Fall precautions -Echo -Check TSH and T4 levels DVT prophylaxis -Heparin subq The patient is admitted with an anticipated greater than 2 midnight stay for evaluation of chest pain CODE STATUS: Full Code Discussed with: Patient Anticipated discharge date: 2-[address]: Home Past Medical History Additional Past Medical History / Comment(s): chronic back pain History of Any Multi-Drug Resistant Organisms: None Reported Past Surgical History: Adenoidectomy, Back Surgery, Section, Cholecystectomy, Orthopedic Surgery, Tonsillectomy Past Psychological History: No Psychological Hx Reported Smoking Status: Never smoker Past Alcohol Use History: None Reported - Past Family History Mother Family Medical History: Cancer Medications and Allergies Home Medications Medication Instructions Recorded Confirmed Type Cyclobenzaprine [Flexeril] 10 mg PO HS PRN 12/31/20 12/01/21 History Levothyroxine Sodium [Synthroid] 125 mcg PO DAILY 12/31/20 12/01/21 History Liothyronine Sodium [Cytomel] 10 mcg PO DAILY 12/31/20 12/01/21 History Rimegepant Sulfate [Nurtec Odt] 75 mg PO DIRECTED PRN 12/31/20 12/01/21 History oxyCODONE-APAP 10-325MG [Percocet 1 tab PO Q12H PRN 12/31/20 12/01/21 History 10-325 mg] Atogepant [Qulipta] 60 mg PO DAILY 11/30/21 12/01/21 History DULoxetine HCL [Cymbalta] 60 mg PO HS 11/30/21 12/01/21 History Ondansetron [Zuplenz] 8 mg PO BID PRN 11/30/21 12/01/21 History Topiramate [Topamax] 100 mg PO BID 11/30/21 12/01/21 History Ubrogepant [Ubrelvy] 100 mg PO DAILY PRN 11/30/21 12/01/21 History traZODone HCL [Desyrel] 50 mg PO HS 11/30/21 12/01/21 History Allergies Allergy/AdvReac Type Severity Reaction Status Date / Time codeine Allergy Rash/Hives Verified 12/01/21 12:32 Iodinated Contrast Media Allergy Rash/Hives Verified 12/01/21 12:32 latex Allergy itchy, Verified 12/01/21 12:32 sores on hands w/contact methylprednisolone Allergy Rash/Hives Verified 02/07/22 02:17 [From Solu-Medrol] morphine Allergy Rash/Hives, Verified 12/01/21 12:32 ITCHING Physical Exam Vitals: Vital Signs Temp Pulse Pulse Resp BP Pulse Ox 02/07/22 03:00 88 16 113/73 98 02/07/22 02:00 101 H 16 127/81 98 02/07/22 01:00 106 H 18 105/64 98 02/07/22 00:00 104 H 20 113/78 94 L 02/06/22 23:00 96 18 125/80 96 02/06/22 22:09 111 H 16 118/67 97 02/06/22 21:24 116 H 116 H 16 119/73 99 02/06/22 21:07 97 F L 225 H 20 113/78 99 Intake and Output 02/06/22 02/06/22 02/07/22 14:59 22:59 06:59 Other: Weight 89.358 kg Results CBC & Chem 7: 02/06/22 21:43 02/06/22 21:43 Labs: Abnormal Lab Results - Last 24 Hours (Table) 02/06/22 02/06/22 Range/Units 21:43 21:43 D-Dimer 0.91 H (<0.60) mg/L FEU BUN 18 H (7-17) mg/dL Glucose 117 H (74-99) mg/dL
[2022-02-07 04:01] LABS: Appearance,Urine Clear (Clear); Bilirubin,Urine Negative (Negative); Blood,Urine Negative (Negative); Color,Urine Colorless; Glucose,Urine (UA) Negative (Negative); Ketones,Urine Negative (Negative); Leukocyte Esterase,Urine Negative (Negative); Nitrite,Urine Negative (Negative); PH, Urine 7.5 (5.0-8.0); Protein,Urine Negative (Negative); Specific Gravity,Urine 1.033 (1.001-1.035); Urobilinogen,Urine <2.0 mg/dL (<2.0)
[2022-02-07 07:50] LABS: T4, Free (Free Thyroxine) 1.17 ng/dL (0.78-2.19)
[2022-02-07] MEDS ORDERED: ONDANSETRON 4 MG/2 ML VIAL IVP PRN (08:03)
[2022-02-07] MEDS: HEPARIN SODIUM,PORCINE/PF 5,000 UNIT/0.5 ML SYRINGE SQ SCH ×2 (08:17→15:20)
[2022-02-07] MEDS: ASPIRIN 81 MG PO SCH (08:17)
[2022-02-07] MEDS: oxyCODONE-APAP 10-325MG 1 EACH TAB PO PRN (08:17)
[2022-02-07] MEDS ORDERED: PROCHLORPERAZINE INJ 10 MG/2 ML VIAL IVP PRN (08:19)
[2022-02-07] MEDS ORDERED: CYCLOBENZAPRINE 10 MG TAB PO PRN (10:01)
[2022-02-07] MEDS ORDERED: NON FORMULARY DRUG (Ubrogepant [Ubrelvy] 100 MG Tablet) PO PRN (10:01)
[2022-02-07] MEDS: TOPIRAMATE 100 MG TAB PO SCH ×2 (10:38→21:14)
[2022-02-07] MEDS: hydrOXYzine pamoate 25 MG CAP PO PRN ×3 (10:38→23:46)
[2022-02-07] MEDS: oxyCODONE ER 20 MG TAB.ER.12H PO SCH ×2 (10:38→21:14)
--- NOTE | 2022-02-07 10:46 | P.CRDCN ---
History of Present Illness Reason for Consult (text): SVT History of present illness: HISTORY OF PRESENTING ILLNESS This is a pleasant 56-year-old female past medical history significant for hypothyroidism. 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 We have been asked to see in consultation for SVT. Patient presents emergency department with palpitations, lightheadedness and dizziness. She states this is her second episode of this. Yesterday she was doing laundry, bent over to use the dryer. She had acute onset symptoms of lightheadedness, dizziness, nausea and intense palpitations. She felt her heart beating out of her chest. She did not have syncope or loss of consciousness. She came to the ER for further evaluationand be in SVT. She was given 25 mg PO Lopressor, IV Pepcid, IV Benadryl, IV Zofran, IV ativan, IV Solu-Medrol and 1L Bolus. She converted back to sinus mechanism. She endorses that she had a similar episode a few weeks ago but did not last as long. No history of CAD, VA, arrhythmia, seizure, CVA, diabetes, hypertension, hyperlipidmemia. She states she has a history of hypothyroidism and falls closing with family medicine physician, she states that her levels have been stable. She denies any family cardiac history. She denies any tobacco, illicit drug use or alcohol use. DIAGNOSTICS * EKG reveals supraventricular tachycardia. Repeat EKG revealed sinus tachycardia, heart rate 125, nonspecific ST depressions abnormalities. * Telemetry tracings indicate sinus rhythm, heart rates 70s80s * CT negative for pulmonary embolism, no heart failure or pulmonary mass or consolidation reported. * Laboratory reviewed, troponin negative 2, CBC unremarkable, sodium 140, potassium 3.6, BUN 18, serum creatinine 0.8, BNP 696, TSH <0.015, free T4 1.17 * Current home cardiac medications include none. She takes hydroxyzine, Flexeril, oxycodone, trazodone, Topamax, Synthroid 125mcg daily, Cymbalta REVIEW OF SYSTEMS CONSTITUTIONAL: Denies fever or chills. CARDIOVASCULAR: Denies chest pain, shortness of breath, orthopnea, PND Reports palpitations RESPIRATORY: Denies cough. GASTROINTESTINAL: Denies abdominal pain, diarrhea, constipation, nausea or vomiting. MUSCULOSKELETAL: Denies myalgias. NEUROLOGIC: Denies numbness, tingling, headacbe or weakness. ENDOCRINE: Denies fatigue, weight change, polydipsia or polyurina. GENITOURINARY: Denies burning, hematuria or urgency with micturation. HEMATOLOGIC: Denies history of anemia or bleeding. PHYSICAL EXAMINATION Blood pressure 101/74, heart 76, afebrile, saturation 97% on room air CONSTITUTIONAL: No apparent distress. HEENT: Head is normocephalic. Pupils are equal, round. Sclerae anicteric. Mucous membranes of the mouth are moist. No JVD. No carotid bruit. CHEST EXAMINATION: Lungs are clear to auscultation. No chest wall tenderness is noted on palpation or with deep breathing. HEART EXAMINATION: Regular rate and rhythm. S1, S2 heard. No murmurs, gallops or rub. ABDOMEN: Soft, nontender. Positive bowel sounds. EXTREMITIES: 2+ peripheral pulses, no lower extremity edema and no calf tenderness. NEUROLOGIC EXAMINATION: Patient is awake, alert and oriented x3. ASSESSMENT SVT History of hypothyroidism Chronic back pain PLAN Obtain 2D echocardiogram and doppler study to assess cardiac structure and function. Start metoprolol tartrate 25mg BID Continue cardiac telemetry Further recommendations based on clinical course Nurse practitioner note has been reviewed by physician. Signing provider agrees with the documented findings, assessment, and plan of care. Past Medical History Additional Past Medical History / Comment(s): chronic back pain History of Any Multi-Drug Resistant Organisms: None Reported Past Surgical History: Adenoidectomy, Back Surgery, Section, Cholecystectomy, Orthopedic Surgery, Tonsillectomy Past Psychological History: No Psychological Hx Reported Smoking Status: Never smoker Past Alcohol Use History: None Reported - Past Family History Mother Family Medical History: Cancer Medications and Allergies Home Medications Medication Instructions Recorded Confirmed Type Levothyroxine Sodium [Synthroid] 125 mcg PO DAILY 12/31/20 02/07/22 History Liothyronine Sodium [Cytomel] 5 mcg PO BID 12/31/20 02/07/22 History Rimegepant Sulfate [Nurtec Odt] 75 mg PO DIRECTED PRN 12/31/20 02/07/22 History oxyCODONE-APAP 10-325MG [Percocet 1 tab PO DAILY PRN 12/31/20 02/07/22 History 10-325 mg] DULoxetine HCL [Cymbalta] 60 mg PO HS 11/30/21 02/07/22 History Topiramate [Topamax] 100 mg PO BID 11/30/21 02/07/22 History Ubrogepant [Ubrelvy] 100 mg PO DAILY PRN 11/30/21 02/07/22 History traZODone HCL [Desyrel] 50 mg PO HS 11/30/21 02/07/22 History Alendronate Sodium 70 mg PO Q7D 02/07/22 02/07/22 History Cyclobenzaprine [Flexeril] 10 mg PO BID PRN 02/07/22 02/07/22 History Phentermine HCl 37.5 mg PO AC-BRKFST 02/07/22 02/07/22 History hydrOXYzine HCL 10 mg PO TID PRN 02/07/22 02/07/22 History oxyCODONE HCL [OxyCONTIN] 20 mg PO Q12H 02/07/22 02/07/22 History Allergies Allergy/AdvReac Type Severity Reaction Status Date / Time barley Allergy Unknown Verified 02/07/22 09:28 codeine Allergy Rash/Hives Verified 02/07/22 09:28 corn Allergy Unknown Verified 02/07/22 09:28 hops Allergy Unknown Verified 02/07/22 09:28 Iodinated Contrast Media Allergy Rash/Hives Verified 02/07/22 09:28 latex Allergy itchy, Verified 02/07/22 09:28 sores on hands w/contact methylprednisolone Allergy Rash/Hives Verified 02/07/22 09:28 [From Solu-Medrol] morphine Allergy Rash/Hives, Verified 02/07/22 09:28 ITCHING soy Allergy Unknown Verified 02/07/22 09:28 Physical Exam Vitals: Vital Signs Temp Pulse Pulse Resp BP Pulse Ox 02/07/22 07:23 79 18 114/79 98 02/07/22 06:00 72 16 109/76 94 L 02/07/22 05:00 86 16 105/66 94 L 02/07/22 04:00 87 16 111/69 96 02/07/22 03:00 88 16 113/73 98 02/07/22 02:00 101 H 16 127/81 98 02/07/22 01:00 106 H 18 105/64 98 02/07/22 00:00 104 H 20 113/78 94 L 02/06/22 23:00 96 18 125/80 96 02/06/22 22:09 111 H 16 118/67 97 02/06/22 21:24 116 H 116 H 16 119/73 99 02/06/22 21:07 97 F L 225 H 20 113/78 99 Intake and Output 02/06/22 02/07/22 02/07/22 22:59 06:59 14:59 Other: Weight 89.358 kg Results 02/06/22 21:43 02/06/22 21:43 Cardiac Enzymes 02/06/22 02/06/22 02/07/22 Range/Units 21:43 21:43 05:29 AST 27 (14-36) U/L Troponin I 0.017 0.024 (0.000-0.034) ng/mL CBC 02/06/22 Range/Units 21:43 WBC 10.4 (3.8-10.6) k/uL RBC 5.17 (3.80-5.40) m/uL Hgb 15.0 (11.4-16.0) gm/dL Hct 45.9 (34.0-46.0) % Plt Count 315 (150-450) k/uL Comprehensive Metabolic Panel 02/06/22 Range/Units 21:43 Sodium 140 (137-145) mmol/L Potassium 3.6 (3.5-5.1) mmol/L Chloride 107 (98-107) mmol/L Carbon Dioxide 23 (22-30) mmol/L BUN 18 H (7-17) mg/dL Creatinine 0.88 (0.52-1.04) mg/dL Glucose 117 H (74-99) mg/dL Calcium 9.9 (8.4-10.2) mg/dL AST 27 (14-36) U/L ALT 26 (4-34) U/L Alkaline Phosphatase 88 (38-126) U/L Total Protein 6.8 (6.3-8.2) g/dL Albumin 4.3 (3.5-5.0) g/dL Current Medications Generic Name Dose Route Start Last Admin Trade Name Freq PRN Reason Stop Dose Admin Aspirin 81 mg 02/07/22 09:00 02/07/22 08:17 Aspirin 81 Mg PO 81 mg DAILY GINNA Administration Heparin Sodium (Porcine) 5,000 unit 02/07/22 08:00 02/07/22 08:17 Heparin Sodium,Porcine/Pf 5,000 Unit/0.5 Ml Syringe SQ 5,000 unit Q8HR GINNA Administration Sodium Chloride 1,000 mls @ 75 mls/hr 02/07/22 00:45 02/07/22 02:16 Saline 0.9% IV 75 mls/hr .[id number] GINNA Administration Naloxone HCl 0.2 mg 02/07/22 00:44 Naloxone 0.4 Mg/Ml 1 Ml Vial IV Q2M PRN Opioid Reversal Ondansetron HCl 4 mg 02/07/22 08:03 Ondansetron 4 Mg/2 Ml Vial IVP Q6H PRN Nausea Oxycodone/Acetaminophen 1 each 02/07/22 08:03 02/07/22 08:17 Oxycodone-Apap 10-325mg 1 Each Tab PO 1 each Q12H PRN Administration Pain Prochlorperazine Edisylate 5 mg 02/07/22 08:19 Prochlorperazine Inj 10 Mg/2 Ml Vial IVP Q6HR PRN Nausea And Vomiting Intake and Output 02/06/22 02/07/22 02/07/22 22:59 06:59 14:59 Other: Weight 89.358 kg 02/06/22 21:43 02/06/22 21:43
--- NOTE | 2022-02-07 13:36 | CA ---
Transthoracic Echo Report Name: Erica Hood Age: 56 Gender: F : 1965 Exam Date: 02/07/2022 09:49 Exam Location: [facility] Ht (in): 65 Wt (lb): 196 Ordering Physician: David Bowman MD Attending/Referring Phys: Crime Scene Investigator Lindsey Calle RDCS Procedure CPT: Indications: svt Cardiac Hx: Technical Quality: Contrast 1: Total Dose (mL): Contrast 2: N/A Total Dose (mL): MEASUREMENTS (Male / Female) Normal Values 2D ECHO LV Diastolic Diameter PLAX 4.3 cm 4.2 - 5.9 / 3.9 - 5.3 cm LV Systolic Diameter PLAX 2.9 cm IVS Diastolic Thickness 1.0 cm 0.6 - 1.0 / 0.6 - 0.9 cm LVPW Diastolic Thickness 1.1 cm 0.6 - 1.0 / 0.6 - 0.9 cm LV Relative Wall Thickness 0.5 RV Internal Dim ED PLAX 3.6 cm LA Systolic Diameter LX 3.5 cm 3.0 - 4.0 / 2.7 - 3.8 cm LA Volume 46.8 cm??? 18 - 58 / 22 - 52 cm??? M-MODE Aortic Root Diameter MM 3.3 cm LA Systolic Diameter MM 3.1 cm LA Ao Ratio MM 0.9 MV E Point Septal Separation 0.3 cm AV Cusp Separation MM 2.3 cm DOPPLER MV Area PHT 2.3 cm??? Mitral E Point Velocity 52.8 cm/s Mitral A Point Velocity 93.1 cm/s Mitral E to A Ratio 0.6 MV Deceleration Time 325.2 ms TR Peak Velocity 167.9 cm/s TR Peak Gradient 11.3 mmHg Right Ventricular Systolic Press 15.5 mmHg FINDINGS Left Ventricle Mildly increased septal wall thickness. Mildly increased posterior wall thickness. Left ventricular cavity size normal. Left ventricular ejection fraction is estimated at 55%. Right Ventricle Normal right ventricular size and function. Right ventricular systolic pressure within normal limits. Right Atrium Normal right atrial size. Left Atrium Normal left atrial size. Mitral Valve Structurally normal mitral valve. Mild mitral regurgitation. Aortic Valve Trileaflet aortic valve. Tricuspid Valve Structurally normal tricuspid valve. Mild tricuspid regurgitation. Pulmonic Valve Structurally normal pulmonic valve. Pericardium Normal pericardium. Aorta Normal size aortic root and proximal ascending aorta. CONCLUSIONS Mild LVH with preserved systolic function Previewed by: Dr. Alli Taylor MD (Electronically Signed) Final Date: 07 February 2022 13:35
--- NOTE | 2022-02-07 15:21 | P.PN ---
Subjective Progress Note Date: 02/07/22 Patient is a 56-year-old female with hypothyroidism, anxiety, and chronic pain who presented to the emergency room with complaints of dizziness and palpitations. The patient fell while attempting to use the restroom while in the waiting area in the emergency room. She was noted to be in suspected SVT with EKG showing 222 bpm. She converted to sinus rhythm with Valsalva with subsequent EKG showing sinus tachycardia at 1 25 bpm with poor R-wave progression. Chest CTA was unremarkable. Laboratory evaluation revealed a troponin of 0.017 with proBNP 696. She was also noted to be severely o rthostatic. Of note, the patient who has a known iodine contrast ALLERGY was premedicated with Benadryl and Solu-Medrol and subsequently developed diffuse itching and a presumed ALLERGIC reaction to the steroids which the patient had previously stated is a known ALLERGY. She continued to have severe itching and anxiety. Patient seen and examined at bedside. She is complaining of itching all over her body that she is just unable to tolerate. She has no chest pain or shortness of breath at this time. She does report some heaviness over her chest. She states that she has been doing with anxiety for the last 3 months but hasn't been that bad. She states that she knows her thyroid has been given that she is working with an rn nursery in [place] to help. A few months ago she dropped to half of 125 g tablet on Sundays full tablet all other days. She also reports that she recently started on phentermine to help with weight loss. General: nontoxic, no distress, appears at stated age Derm: warm, dry Head: atraumatic, normocephalic, symmetric Eyes: EOMI, no lid lag, anicteric sclera Mouth: no lip lesion, mucus membranes moist Cardiovascular: S1S2 reg, no murmur, positive posterior tibial pulse bilateral, Lungs: CTA bilateral, no rhonchi, no rales , no accessory muscle use Abdominal: soft, nontender to palpation, no guarding, no appreciable organomegaly Ext: no gross muscle atrophy, no edema, no contractures Neuro: CN II-XI grossly intact, no focal neuro deficits Psych: Alert, oriented, anxous, unable to sit still Assessment/plan: SVT Orthostatic Hypotension - stop phenteramine - cardio recs: metoprolol - Echocardiogram with ejection fraction 55% Post thyroidism -Overtreated -Decrease Synthroid to 125 g daily -Stop Cytomel Chronic pain - Percocet, oxycodone - Flexaril Anxiety - Ativan X 1, check UDS - hydroxizine - trazodone - Topomax Hx migraine [place] Likely home in a.m. Objective - Vital Signs Vital signs: Vital Signs Temp 97.7 F 02/07/22 14:33 Pulse 95 02/07/22 15:00 Resp 25 H 02/07/22 15:00 BP 116/74 02/07/22 15:00 Pulse Ox 94 L 02/07/22 15:00 FiO2 Intake & Output 02/06/22 02/07/22 02/07/22 18:59 06:59 18:59 Weight 89.358 kg - Labs CBC & Chem 7: 02/06/22 21:43 02/06/22 21:43 Labs: Abnormal Lab Results - Last 24 Hours (Table) 02/06/22 02/06/22 02/07/22 Range/Units 21:43 21:43 05:29 D-Dimer 0.91 H (<0.60) mg/L FEU BUN 18 H (7-17) mg/dL Glucose 117 H (74-99) mg/dL TSH <0.015 L (0.465-4.680) mIU/L
[2022-02-07] MEDS: METOPROLOL TARTRATE 25 MG TAB PO SCH ×2 (15:24→21:14)
[2022-02-07] MEDS ORDERED: traZODone HCL 50 MG TAB PO SCH (21:00)
[2022-02-07] MEDS ORDERED: DULoxetine HCL 60 MG CAPSULE.DR PO SCH (21:00)
[2022-02-07] MEDS: LIOTHYRONINE SODIUM 5 MCG TAB PO SCH (21:12)
[2022-02-08] MEDS: HEPARIN SODIUM,PORCINE/PF 5,000 UNIT/0.5 ML SYRINGE SQ SCH ×2 (01:34→09:16)
[2022-02-08] MEDS: oxyCODONE-APAP 10-325MG 1 EACH TAB PO PRN (04:19)
[2022-02-08 04:28] VITALS: RESP 17; TEMP 97.8
[2022-02-08] MEDS: SODIUM CHLORIDE 0.9% 1,000 ML IV SCH ×3 (05:01→08:35)
[2022-02-08 05:05] LABS: Amphetamine Screen,Urine Not Detected (NotDetected); Barbiturate Screen,Urine Not Detected (NotDetected); Benzodiazepines Screen,Urine Not Detected (NotDetected); Cocaine Screen,Urine Not Detected (NotDetected); Methadone Screen, Urine Not Detected (NotDetected); Opiate Screen,Urine Not Detected (NotDetected); Oxycodone Screen, Urine Detected (NotDetected); Phencyclidine Screen,Urine Not Detected (NotDetected); Tricyclic Antidepressant,Urine Not Detected (NotDetected); Urn Cannabinoid Scrn Not Detected (NotDetected)
[2022-02-08] MEDS: hydrOXYzine pamoate 25 MG CAP PO PRN ×2 (06:09→11:09)
[2022-02-08] MEDS ORDERED: LEVOTHYROXINE 112 MCG TAB PO SCH (06:30)
[2022-02-08 09:15] VITALS: BP 104/73; PULSE 73
[2022-02-08] MEDS: oxyCODONE ER 20 MG TAB.ER.12H PO SCH (09:15)
[2022-02-08] MEDS: ASPIRIN 81 MG PO SCH (09:17)
[2022-02-08] MEDS: TOPIRAMATE 100 MG TAB PO SCH (09:17)
[2022-02-08] MEDS: METOPROLOL TARTRATE 25 MG TAB PO SCH (09:17)
[2022-02-08] MEDS: LIOTHYRONINE SODIUM 5 MCG TAB PO SCH (09:18)
--- NOTE | 2022-02-08 10:27 | P.DS ---
Providers Date of admission: 02/07/22 00:45 Expected date of discharge: 02/08/22 Attending physician: David Bowman MD Consults: 02/07/22 00:44 Consult Physician Routine Consulting Provider: [facility] Consult Reason/Comments: Paroxysmal SVT, orthostatic dizziness, chest pain Do you want consulting provider notified?: Yes, Notify in am Primary care physician: Stated None Hospital Course: Discharge Diagnosis: Supraventricular tachycardia Orthostatic hypotension Hypothyroidism, TSH undetectable medication changes as below Chronic pain Anxiety History of migraine headaches Hospital Course: Patient is a 56-year-old female with hypothyroidism, anxiety, and chronic pain who presented to the emergency room with complaints of dizziness and palpitations. The patient fell while attempting to use the restroom while in the waiting area in the emergency room. She was noted to be in suspected SVT with EKG showing 222 bpm. She converted to sinus rhythm with Valsalva with subsequent EKG showing sinus tachycardia at 1 25 bpm with poor R-wave progression. Chest CTA was unremarkable. Laboratory evaluation revealed a troponin of 0.017 with proBNP 696. She was also noted to be severely orthostatic. Of note, the patient who has a known iodine contrast ALLERGY was premedicated with Benadryl and Solu-Medrol and subsequently developed diffuse itching and a presumed ALLERGIC reaction to the steroids which the patient had previously stated is a known ALLERGY. She continued to have severe itching and anxiety. She was started on Vistaril which helped with old. She maintains normal sinus rhythm. She was seen by cardiology who agreed with continuing metoprolol. She was determined stable for discharge. She was found to have an overtreated thyroid with a TSH that is undetectable. She states that her thyroid fluctuates frequently. She was determined stable for discharge. Follow-up: We discussed decreasing from 125 g every 112 g and she is in agreement. She had been taking a half tablet on Sundays and she will continue to take a half tablet of the 112 g on Sunday. She'll follow with her turf manager. She'll follow with Dr. Kramer in 1 week. To establish with a new primary care physician on 02/13 area we also discussed using Vistaril twice daily to help with her anxiety and then a third dose as needed. Patient seen and examined at bedside. Vital signs reviewed and stable. General: nontoxic, no distress, appears at stated age Derm: warm, dry Head: atraumatic, normocephalic, symmetric Eyes: EOMI, no lid lag, anicteric sclera Mouth: no lip lesion, mucus membranes moist Cardiovascular: S1S2 reg, no murmur, positive posterior tibial pulse bilateral, Lungs: CTA bilateral, no rhonchi, no rales , no accessory muscle use Abdominal: soft, nontender to palpation, no guarding, no appreciable organomegaly Ext: no gross muscle atrophy, no edema, no contractures Neuro: CN II-XI grossly intact, no focal neuro deficits Psych: Alert, oriented, appropriate affect A total of 25 minutes of time were spent preparing this complex discharge s amari. Patient was discharged on 02/08/22. Patient Condition at Discharge: Stable Plan - Discharge Summary Discharge Rx Participant: No New Discharge Prescriptions: New Metoprolol Tartrate [Lopressor] 25 mg PO BID #60 tab Levothyroxine Sodium [Synthroid] 112 mcg PO DAILY@0630 #30 tab hydrOXYzine pamoate [Vistaril] 25 mg PO TID #90 cap Continue Rimegepant Sulfate [Nurtec Odt] 75 mg PO DIRECTED PRN PRN Reason: Migraine Headache traZODone HCL [Desyrel] 50 mg PO HS Cyclobenzaprine [Flexeril] 10 mg PO BID PRN PRN Reason: Muscle Spasm Alendronate Sodium 70 mg PO Q7D oxyCODONE-APAP 10-325MG [Percocet 10-325 mg] 1 tab PO DAILY PRN PRN Reason: Breakthrough Pain Liothyronine Sodium [Cytomel] 5 mcg PO BID DULoxetine HCL [Cymbalta] 60 mg PO HS Topiramate [Topamax] 100 mg PO BID Ubrogepant [Ubrelvy] 100 mg PO DAILY PRN PRN Reason: MIGRAINE HEADACHE hydrOXYzine HCL 10 mg PO TID PRN PRN Reason: Itching oxyCODONE HCL [OxyCONTIN] 20 mg PO Q12H Discontinued Levothyroxine Sodium [Synthroid] 125 mcg PO DAILY Phentermine HCl 37.5 mg PO AC-BRKFST Discharge Medication List Liothyronine Sodium [Cytomel] 5 mcg PO BID 12/31/20 [History] Rimegepant Sulfate [Nurtec Odt] 75 mg PO DIRECTED PRN 12/31/20 [History] oxyCODONE-APAP 10-325MG [Percocet 10-325 mg] 1 tab PO DAILY PRN 12/31/20 [History] DULoxetine HCL [Cymbalta] 60 mg PO HS 11/30/21 [History] Topiramate [Topamax] 100 mg PO BID 11/30/21 [History] Ubrogepant [Ubrelvy] 100 mg PO DAILY PRN 11/30/21 [History] traZODone HCL [Desyrel] 50 mg PO HS 11/30/21 [History] Alendronate Sodium 70 mg PO Q7D 02/07/22 [History] Cyclobenzaprine [Flexeril] 10 mg PO BID PRN 02/07/22 [History] hydrOXYzine HCL 10 mg PO TID PRN 02/07/22 [History] oxyCODONE HCL [OxyCONTIN] 20 mg PO Q12H 02/07/22 [History] Levothyroxine Sodium [Synthroid] 112 mcg PO DAILY@0630 #30 tab 02/08/22 [Rx] Metoprolol Tartrate [Lopressor] 25 mg PO BID #60 tab 02/08/22 [Rx] hydrOXYzine pamoate [Vistaril] 25 mg PO TID #90 cap 02/08/22 [Rx] Follow up Appointment(s)/Referral(s): Syd Kramer MD [STAFF PHYSICIAN] - 2 Weeks Eddie Mir MD [REFERRING] - As Needed (turf manager ) None,Stated [Primary Care Provider] - 1-2 days Dori Brito MD [STAFF PHYSICIAN] - As Needed (turf manager) Activity/Diet/Wound Care/Special Instructions: Activity: As tolerated Diet: Heart healthy Special Instructions: Stay of Phenteramine. Please follow with your current turf manager as you need close monitoring at this time. Discharge Disposition: HOME SELF-CARE
--- NOTE | 2022-02-08 13:14 | P.PN ---
Subjective This is a pleasant 56-year-old female past medical history significant for hypothyroidism. 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 We have been asked to see in consultation for SVT. Patient presents emergency department with palpitations, lightheadedness and dizziness.She came to the ER for further evaluationand be in SVT. She was given 25 mg PO Lopressor, IV Pepcid, IV Benadryl, IV Zofran, IV ativan, IV Solu-Medrol and 1L Bolus. She converted back to sinus mechanism. She was monitored overnight, started on a beta pricila Patient seen and examined at bedside, no acute distress. No further episodes of NSVT. Her echocardiogram revealed EF 55%, no significant wall motion or valvular abnormalities. She is tolerating her beta pricila well. GENERAL: Well-appearing, well-nourished and in no acute distress. NECK: Supple without JVD or thyromegaly. LUNGS: Breath sounds clear to auscultation bilaterally. Respiration equal and unlabored. No wheezes, rales or rhonchi. HEART: Regular rate and rhythm without murmurs, rubs or gallops. S1 and S2 heard. EXTREMITIES: Normal range of motion, no edema. No clubbing or cyanosis. Peripheral pulses intact. ASSESSMENT SVT History of hypothyroidism Chronic back pain PLAN Continue metoprolol tartrate 25mg BID Patient stated be discharged from cardiology perspective. Follow up outpatient with Dr. Kramer. Nurse Practitioner note has been reviewed, I agree with a documented findings and plan of care. Patient was seen and examined. Objective - Vital Signs Vital signs: Vital Signs Temp 97.8 F 02/08/22 04:00 Pulse 73 02/08/22 08:00 Resp 17 02/08/22 04:00 BP 104/73 02/08/22 08:00 Pulse Ox 94 L 02/08/22 08:00 FiO2 Intake & Output 02/07/22 02/08/22 02/08/22 18:59 06:59 18:59 Intake Total 240 Output Total 200 Balance 240 -200 Weight 89.358 kg Intake: Oral 240 Output: Urine 200 Other: # Voids 1 - Labs CBC & Chem 7: 02/06/22 21:43 02/06/22 21:43 Labs: Abnormal Lab Results - Last 24 Hours (Table) 02/08/22 Range/Units 04:00 Ur Oxycodone Screen Detected H (NotDetected)
== END 2022-02-08 12:01 | disposition home or self-care (01) | DRG 310 ==
LOC: EC 21:02 → 3SCARD 02-07 00:45
PROVIDERS: ADMIT Internal Medicine; ATTEND Internal Medicine
DX: I47.1 Supraventricular tachycardia (principal); E03.9 Hypothyroidism, unspecified; F41.9 Anxiety disorder, unspecified; G43.909 Migraine, unspecified, not intractable, without status migrainosus; G89.29 Other chronic pain; I95.1 Orthostatic hypotension; I08.1 Rheumatic disorders of both mitral and tricuspid valves; L29.9 Pruritus, unspecified; M54.9 Dorsalgia, unspecified; W19.XXXA Unspecified fall, initial encounter; Z79.890 Hormone replacement therapy; Z79.899 Other long term (current) drug therapy; Z91.041 Radiographic dye allergy status; Z88.5 Allergy status to narcotic agent; Z88.8 Allergy status to other drugs, medicaments and biological substances; Z91.018 Allergy to other foods; Z91.040 Latex allergy status; Z90.49 Acquired absence of other specified parts of digestive tract
CPT/HCPCS: 36415; 71046; 71275; 80053; 80306; 81003; 83735; 83880; 84439; 84443; 84484; 85025; 85379; 93005; 93306; 96361; 96372; 96374; 96375; 99291

== ENCOUNTER 2022-06-12 08:20 | Day surgery (SDC) | payer MEDICARE, OTHER ==
--- NOTE | 2022-06-12 07:24 | HP ---
HISTORY AND PHYSICAL DATE OF SURGERY: 06/12/2022. HISTORY OF PRESENT ILLNESS: Erica Hood is a 56-year-old patient seen with persistent right shoulder adhesive capsulitis. We discussed options. She elected to proceed with manipulation under anesthesia of the right shoulder with steroid injection. Consent was obtained. PAST MEDICAL HISTORY: Hypothyroidism and hypertension. PAST SURGICAL HISTORY: Cholecystectomy, knee surgery, lumbar spine surgery, and right shoulder arthroscopy. DAILY MEDICATIONS: 1. Levothyroxine. 2. OxyContin. 3. Flexeril. ALLERGIES: 1. Morphine. 2. Codeine. SOCIAL HISTORY: She denies current tobacco use. PHYSICAL EVALUATION OF THE RIGHT SHOULDER: Flexion is 80 degrees, abduction is 70 degrees, external rotation is 60 degrees with good strength. She has tenderness along the anterolateral acromion and rotator cuff insertion site. Impingement sign is positive. Distal neurovascular exam is intact. IMAGING STUDIES: Radiographs of the right shoulder revealed conversion to a flat anterior acromion. IMPRESSION: 1. Right shoulder adhesive capsulitis. 2. History of right shoulder arthroscopic rotator cuff repair. 3. Hypertension. 4. Chronic opioid use. PLAN: Manipulation under anesthesia of the right shoulder with steroid injection. MMODL / IJN: [id number] /
[~2022-06-12 08:20] MED LIST changes: -DEXAMETHASONE SOD PHOSPHATE 4 MG/ML 1 ML VIAL IV ONE; -HYDROmorphone 0.5 MG/0.5 ML SYRINGE IVP PRN; -METOCLOPRAMIDE 5 MG/ML 2 ML VIAL IVP PRN; -ONDANSETRON 4 MG/2 ML VIAL IVP ONE; +fentaNYL (PF) 50 MCG/ML 2 ML AMP IV PRN
[2022-06-12 08:55] VITALS: RESP 16; TEMP 97
[2022-06-12] MEDS ORDERED: ONDANSETRON 4 MG/2 ML VIAL IVP ONE (08:58)
[2022-06-12] MEDS ORDERED: ONDANSETRON 4 MG/2 ML VIAL ONE (08:58)
[2022-06-12] MEDS ORDERED: MIDAZOLAM 2 MG/2 ML VIAL IVP ONE (09:02)
[2022-06-12] MEDS ORDERED: fentaNYL (PF) 50 MCG/ML 2 ML AMP IVP ONE (09:06)
[2022-06-12] MEDS ORDERED: fentaNYL (PF) 50 MCG/1 ML VIAL IVP ONE (09:14)
[2022-06-12] MEDS ORDERED: PROPOFOL 10 MG/ML 20 ML VIAL IV ONE (09:33)
[2022-06-12] MEDS ORDERED: ROPIVACAINE 5 MG/ML 30 ML VIAL ONE (09:33)
[2022-06-12] MEDS ORDERED: DEXAMETHASONE SOD PHOSPHATE 4 MG/ML 1 ML VIAL ONE (09:33)
--- NOTE | 2022-06-12 09:34 | P.ANPRN ---
Procedure Note - Anesthesia - Nerve Block Performed Right Interscalene Single Time Out Performed: Yes Date of Procedure: 06/12/22 Procedure Start Time: : Procedure Stop Time: :13 Location of Patient: PreOp Indication: Acute Post-Operative Pain, Requested by Surgeon Sedation Type: Sedate with meaningful contact maintained Preparation: Sterile Prep, Sterile Dressing Position: Sitting Catheter: None Needle Types: Facet Needle Gauge: 21 Ultrasound used to visualize needle placement: Yes Ultrasound used to observe medication spread: Yes Injectate: 0.5% Ropivacaine (see comment for volume) (30 ml + decadron 4 mg) Blood Aspirated: No Pain Paresthesia on Injection Noted: No Resistance on Injection: Normal Image Stored and Saved: Yes Events: Uneventful and Well Tolerated
[2022-06-12] MEDS ORDERED: methylPREDNISolone ACETATE 80 MG/ML 1 ML VIAL INJ ONE (09:38)
[2022-06-12] MEDS ORDERED: BUPIVACAINE (PF) 0.25% 30 ML VIAL MISCELLANE ONE (09:38)
--- NOTE | 2022-06-12 09:47 | P.OP ---
Date of Procedure: 06/12/22 Preoperative Diagnosis: Right shoulder adhesive capsulitis Postoperative Diagnosis: Right shoulder adhesive capsulitis Procedure(s) Performed: Manipulation under anesthesia right shoulder with steroid injection Anesthesia: GETA, regional (Interscalene block) Surgeon: Vu Hitchcock Estimated Blood Loss (ml): 0 Pathology: none sent Condition: stable Disposition: PACU Indications for Procedure: 56-year-old patient who was seen with persistent right shoulder adhesive capsulitis. After having treatment options discussed, she elected to proceed with manipulation under anesthesia right shoulder with steroid injection. Consent was obtained. Operative Findings: See description of procedure Description of Procedure: Patient was taken to a monitored anesthesia area. She received appropriate IV sedation by the department of anesthesia. Once sufficient anesthesia was noted I performed a manipulation of the right shoulder achieving full range of motion with audible tearing. The anterior aspect of the right shoulder was prepped and draped in the normal sterile orthopedic fashion. I now injected a solution of 1 mL Depo-Medrol and 2 mL quarter percent plain Marcaine intra-articular glenohumeral joint under sterile technique. I now applied a sterile Band-Aid. The shoulder was again taken through a range of motion. The patient was awakened having tolerated the procedure well.
[2022-06-12 11:01] VITALS: BP 94/63; PULSE 70
== END 2022-06-12 11:01 | disposition home or self-care (01) ==
LOC: OR 08:20
PROVIDERS: ATTEND Orthopaedic Surgery
DX: M75.01 Adhesive capsulitis of right shoulder (principal); G89.18 Other acute postprocedural pain; E03.9 Hypothyroidism, unspecified; I10 Essential (primary) hypertension; K91.0 Vomiting following gastrointestinal surgery; Z90.49 Acquired absence of other specified parts of digestive tract; Z98.890 Other specified postprocedural states; Z79.890 Hormone replacement therapy; Z79.899 Other long term (current) drug therapy; Z88.5 Allergy status to narcotic agent; Z91.041 Radiographic dye allergy status; Z88.8 Allergy status to other drugs, medicaments and biological substances
CPT/HCPCS: 64415; 23700; 76942; J2250; J1040; J1100; J2405; J3010 ×2; J2795; J2704